=== PATIENT | female | born 1940 | race Caucasian/White ===

== ENCOUNTER 2016-05-07 07:19 | Emergency (ER) | payer MEDICARE, OTHER ==
[2016-05-07 10:05] LABS: HEMOGLOBIN 11.4 gm/dl (12.3-15.3); RED BLOOD COUNT 4.02 M/UL (4.00-5.10); WHITE BLOOD COUNT 15.3 K/UL (4.5-11.0)
[2016-11-15] MEDS ORDERED: LIORESAL TAB 1010 MG PO (18:39)
[2016-11-15] MEDS ORDERED: URECHOLINE 25 M25 MG PO (18:39)
[2016-11-15] MEDS ORDERED: ELIQUIS5 MG PO (18:39)
[2016-11-15] MEDS ORDERED: COREG 25MG TAB25 MG PO (18:40)
[2016-11-15] MEDS ORDERED: NIFEREX 150 MG150 MG PO (18:41)
[2016-11-15] MEDS ORDERED: VITAMIN B-121000 MC3 PO (18:41)
[2016-11-15] MEDS ORDERED: SYNTHROID50 MCG PO (18:41)
[2016-11-15] MEDS ORDERED: LISINOPRIL40 MG PO (18:42)
[2016-11-15] MEDS ORDERED: MIRTAZAPINE15 MG PO (18:42)
[2016-11-15] MEDS ORDERED: ZOFRAN ODT4 MG PO (18:43)
[2016-11-15] MEDS ORDERED: PHOS-NAK PACKET1 EA PO (18:44)
[2016-11-15] MEDS ORDERED: PRAVASTATIN SOD40 MG PO (18:45)
[2016-11-15] MEDS ORDERED: FLORANEX TABLE1 EACH PO (18:45)
[2016-11-15] MEDS ORDERED: ULTRAM50 MG PO (18:45)
[2016-11-15] MEDS ORDERED: NAMENDA10 MG PO (18:47)
[2016-11-15] MEDS ORDERED: NITROFURANTOIN100 MG PO (18:48)
[2016-11-15] MEDS ORDERED: NORMAL SALINE INH (18:53)
[2016-11-17] MEDS ORDERED: VANCOCIN 125MG/2.5ML PO (18:47)
[2016-11-19] MEDS ORDERED: ACIDOPHILUS LACT1 GM PO (12:47)
[2016-11-19] MEDS ORDERED: PROTONIX40 MG PO (12:48)
[2016-11-19] MEDS ORDERED: NAMENDA5 MG PO (12:48)
== END 2016-05-07 13:10 | disposition home or self-care (01) ==
LOC: ER1 07:19
PROVIDERS: Student in an Organized Health Care Education/Training Program
DX: J20.8 Acute bronchitis due to other specified organisms (principal); D72.829 Elevated white blood cell count, unspecified; I10 Essential (primary) hypertension; Z87.891 Personal history of nicotine dependence; Z90.49 Acquired absence of other specified parts of digestive tract; Z88.0 Allergy status to penicillin; Z91.041 Radiographic dye allergy status; Z79.899 Other long term (current) drug therapy
CPT/HCPCS: 36415; 71010; 80053; 81001; 82550; 82553; 83874; 83880; 84484; 85025; 93005; 94664; 99284

== ENCOUNTER 2020-02-10 10:08 | Emergency (ER) | payer MEDICARE, OTHER ==
[~2020-02-10 10:08] MED LIST: ACIDOPHILUS LACT1 GM PO; COREG 25MG TAB25 MG PO; ELIQUIS5 MG PO; FLORANEX TABLE1 EACH PO; LIORESAL TAB 1010 MG PO; LISINOPRIL40 MG PO; MIRTAZAPINE15 MG PO; NAMENDA10 MG PO; NAMENDA5 MG PO; NIFEREX 150 MG150 MG PO; NITROFURANTOIN100 MG PO; NORMAL SALINE INH; PHOS-NAK PACKET1 EA PO; PRAVASTATIN SOD40 MG PO; PROTONIX40 MG PO; PYRIDIUM100 MG PO; SYNTHROID50 MCG PO; ULTRAM50 MG PO; URECHOLINE 25 M25 MG PO; VANCOCIN 125MG/2.5ML PO; VIBRAMYCIN100 MG PO; VITAMIN B-121000 MC3 PO; ZOFRAN ODT4 MG PO
== END 2020-02-10 10:37 | disposition home or self-care (01) ==
LOC: ER1 10:08
DX: T83.038A Leakage of other urinary catheter, initial encounter (principal); I10 Essential (primary) hypertension
CPT/HCPCS: 99283

== ENCOUNTER 2020-03-14 18:21 | Emergency (ER) | payer MEDICARE, OTHER | END 2020-03-14 19:53 | disposition left against medical advice (07) | LOC: ER1 18:21 | DX: R39.198 Other difficulties with micturition (principal); Z53.21 Procedure and treatment not carried out due to patient leaving prior to being seen by health care provider ==

== ENCOUNTER 2020-04-08 21:29 | Emergency (ER) | payer MEDICARE, OTHER | END 2020-04-08 22:31 | disposition home or self-care (01) | LOC: ER1 21:29 | DX: Z53.21 Procedure and treatment not carried out due to patient leaving prior to being seen by health care provider (principal) ==

== ENCOUNTER 2020-08-28 17:33 | Emergency (ER) | payer MEDICARE, OTHER ==
[2020-08-28 18:33] LABS: HEMOGLOBIN 11.6 gm/dl (12.3-15.3); RED BLOOD COUNT 4.03 M/UL (4.00-5.10)
[2020-08-28] MEDS ORDERED: ZOFRAN ODT 4 MG4 MG SL (19:42)
== END 2020-08-28 19:47 | disposition home or self-care (01) ==
LOC: ER1 17:33
PROVIDERS: Emergency Medicine
DX: R06.02 Shortness of breath (principal); R11.0 Nausea; I10 Essential (primary) hypertension; E78.5 Hyperlipidemia, unspecified; Z88.8 Allergy status to other drugs, medicaments and biological substances; Z90.710 Acquired absence of both cervix and uterus
CPT/HCPCS: 71045; 80053; 82550; 82553; 83735; 83874; 84100; 84484; 85025; 93005; 99285

== ENCOUNTER 2021-01-18 15:43 | Emergency (ER) | payer MEDICARE, OTHER ==
[~2021-01-18 15:43] MED LIST changes: +ZOFRAN ODT 4 MG4 MG SL
[2021-01-18 17:58] LABS: HEMOGLOBIN 11.5 gm/dl (12.3-15.3); RED BLOOD COUNT 3.89 M/UL (4.00-5.10); WHITE BLOOD COUNT 7.7 K/UL (4.5-11.0)
== END 2021-01-18 22:30 | disposition home or self-care (01) ==
LOC: ER1 15:43
PROVIDERS: Physician Assistant
DX: T83.098A Other mechanical complication of other urinary catheter, initial encounter (principal); I10 Essential (primary) hypertension; Y83.8 Other surgical procedures as the cause of abnormal reaction of the patient, or of later complication, without mention of misadventure at the time of the procedure
CPT/HCPCS: 80053; 81001; 82550; 82553; 83874; 84484; 85025; 99283

== ENCOUNTER 2021-02-08 12:53 | Emergency (ER) | payer MEDICARE, OTHER | END 2021-02-08 13:54 | disposition left against medical advice (07) | LOC: ER1 12:53 | DX: Z53.21 Procedure and treatment not carried out due to patient leaving prior to being seen by health care provider (principal) ==

== ENCOUNTER 2021-02-20 17:50 | Emergency (ER) | payer MEDICARE, OTHER ==
[2021-02-20] MEDS ORDERED: FLOMAX 0.4 MG0.4 MG PO (20:09)
== END 2021-02-20 20:30 | disposition home or self-care (01) ==
LOC: ER1 17:50
DX: T83.098A Other mechanical complication of other urinary catheter, initial encounter (principal); I10 Essential (primary) hypertension; Z88.0 Allergy status to penicillin
CPT/HCPCS: 99283

== ENCOUNTER 2021-02-23 00:29 | Emergency (ER) | payer MEDICARE, OTHER ==
[~2021-02-23 00:29] MED LIST changes: +FLOMAX 0.4 MG0.4 MG PO
[2021-02-23 01:40] LABS: HEMOGLOBIN 11.1 gm/dl (12.3-15.3); RED BLOOD COUNT 3.74 M/UL (4.00-5.10); WHITE BLOOD COUNT 8.5 K/UL (4.5-11.0)
[2021-02-23] MEDS ORDERED: CEPHALEXIN500 M1 PO (02:14)
== END 2021-02-23 10:08 | disposition home or self-care (01) ==
LOC: ER1 00:29
PROVIDERS: Emergency Medicine
DX: T83.091A Other mechanical complication of indwelling urethral catheter, initial encounter (principal); I10 Essential (primary) hypertension; N39.0 Urinary tract infection, site not specified; X58.XXXA Exposure to other specified factors, initial encounter
CPT/HCPCS: 80048; 81001; 85025; 96374; 99283; J0696